=== PATIENT | female | born 1995 | race Caucasian/White ===

== ENCOUNTER 2020-04-05 03:22 | Inpatient (IN) | payer OTHER, BC ==
[2020-04-05] MEDS ORDERED: Sodium Chloride 0.9% 10 ML Syringe FLUSH PRN (04:14)
[2020-04-05] MEDS ORDERED: Ondansetron 4 MG/2 ML SDV IVPUSH PRN (04:14)
[2020-04-05] MEDS ORDERED: Oxytocin/Lactated Ringers 10 UNIT/1,000 ML BAG IV SCH ×2 (04:15→13:30)
[2020-04-05] MEDS: Nalbuphine 10 MG/ML Syringe IVPUSH PRN ×2 (07:28→09:34)
--- NOTE | 2020-04-05 08:55 | PCM.LDHP ---
L&D History of Present Illness - General Date of Service: 04/05/20 Admit Problem/Dx: Patient Status Order with Admit Dx/Problem 04/05/20 03:32 Patient Status [ADT] Routine 04/05/20 04:14 Patient Status [ADT] Routine Admission Diagnosis/Problem Admission Diagnosis/Problem 04/05/20 08:46 Bre is a 24-year-old 1 para 0 white female admitted at 39-6/7 weeks gestational age with a final CARA of 04/06/2020 with a diagnosis of spontaneous rupture membranes at approximately 0130 hrs. on 04/05/2020 now presenting with active labor. Source of Information: Patient History Limitations: Reports: No Limitations - History of Present Illness Introduction:: Bre is a 24-year-old 1 para 0 white female admitted at 39-6/7 weeks gestational age with a final CARA of 04/06/2020 with a diagnosis of spontaneous rupture membranes at approximately 0130 hrs. on 04/05/2020 now presenting with active labor.She is having intense enough contractions or she is having to breathe through them. She has had had 1 dose of Nubain with some relief. In some cervical change since her last evaluation in clinic. She is group B strep negative. She's had some anxiety during the course of . She is BRCA positive. She has had a history of depression. Vaccinations given on 07/29/2019. She plans to breast-feed. Prequel resting was negative for trisomy 21, 18 and 13. Patient had menarche at age proximal A 12. Cycles every 28 days. Laststarted 06/25/2019 but ultrasound done at 10-1/7 weeks is how was dated. She is given an CARA o 04/06/20 and this CARA is supported by 2 other ultrasounds done on 11/26/2019 and 12/22/2019. Initial ultrasound showed a small hypoechoic area in the area of the stomach but this resolved on the second ultrasound. Etiology of this was not known. Patient received her T dap immunization on 02/10/2020. RPR was negative. She is rubella immune. Hepatitis 80 vaccinations are given in 2007. Hepatitis B vaccinations are given in 1994. Meningococcal vaccination was given in 2017. Course: Patient was seen early in the at 10 weeks gestation. She was seen on a regular basis. Weight 152 pounds 172.8 pounds for a 20 pound increase. Her vital signs remained stable throughout the course and her fundal height growth was appropriate. Laboratory testing and shows her blood to be O+ with negative amylase screen. Hemoglobin is 14.2 g/dL and platelets are 246,000. She is rubella immune. RPR is nonreactive. Urine cultures negative. Hepatitis B surface antigen and HIV assays were both negative. Gonorrhea and chlamydia tests were both negative. Second trimester testing showed hemoglobin to be 12.5 g/dL. Platelets were 244,001 hour GTT was normal at 100. Her RPR done on 01/05/2020 was negative. Group B strep screen was negative. Allergies: None Medications: 1. Probiotic oral capsule daily 2. Vitamin D tabs daily 3. vitamins daily Past medical history: 1. BRCA2 positive Past surgical history: 1. Oral surgery Family history: Mother is alive and wellis BRCA positive, no cancer history noted. Father is alive and well. One brother is alive and well. One sister is alive and well but also BRCA positive. Maternal grandmother is alive and well at age 75is BRCA positive but has no cancer history. Maternal grandfather is alive and well. Paternal grandmother is secondary to leukemia at age 45. Paternal grandfather is alive at age 86 but with some heart disease. She has no known family history of bleeding or blood clotting disorders, anesthesia -related issues or -related issues. There is some distant colon cancer noted on her mother's side. Social history: Patient is . She lives in [place], [place]. 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 's name is Efren. She is not using any significant most alcohol, drugs or tobacco. Review of systems: In general patient has no complaints. She is comfort. Baby has been active. Skin: Negative Lungs: No infectious symptoms or shortness of breath Cardiovascular: No chest pain or exercise intolerance Breasts: No lumps, changes in size, pain, dimpling, discharge or axillary or supraclavicular concerns. changes GI: Negative : changes Musculoskeletal: Negative Neurological: Negative In general the patient is well-developed, well-nourished, pleasant female of stated age in no acute distress. On last evaluation in clinic her blood pressure was 128/76. Weight was 172.8 pounds with pregravid weight of 152 pounds. Height is 5 feet 5 inches. Prepregnancy body mass index is 25.8. heart rate at that time was 130 Skin is warm dry without lesions. HEENT, neck and back within normal limits. Lungs are clear with good breath sounds in all lung lilly. Cardiovascular exam shows regular and rhythm without murmurs. Breast exam is deferred at this time having been done at first visit found to be normal. Abdomen is gravid with fundal height consistent with 38.5 cm on last evaluation clinic. Baby in vertex presentation.. Genital examdigital as stated above.. Extremities and neurological exam are grossly within normal limits. 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: , Other (See Below) Other OB/BYN History: BRCA positive Psychiatric History: Reports: Anxiety, Depression - Past Surgical History HEENT Surgical History: Reports: Myringotomy w Tube(s), Oral Surgery Social & Family History - Tobacco Use Smoking Status *Q: Never Smoker - Recreational Drug Use Recreational Drug Use: No H&P Review of Systems - Review of Systems: Review Of Systems: See Below L&D Exam - Exam Exam: See Below - Vital Signs Vital Signs: Last Vital Signs Temp 36.9 C 04/05/20 03:32 Pulse 83 04/05/20 03:32 Resp 18 04/05/20 03:32 BP 137/79 04/05/20 03:32 Pulse Ox 99 04/05/20 03:32 Weight: 78.018 kg - Patient Data Lab Results Last 24 hrs: Laboratory Results - last 24 hr 04/05/20 04/05/20 Range/Units 04:50 04:50 WBC 12.08 H (3.98-10.04) K/mm3 RBC 4.59 (3.98-5.22) M/mm3 Hgb 14.4 (11.2-15.7) gm/dl Hct 41.3 (34.1-44.9) % MCV 90.0 (79.4-94.8) fl MCH 31.4 (25.6-32.2) pg MCHC 34.9 (32.2-35.5) g/dl RDW Std Deviation 42.1 (36.4-46.3) fL Plt Count 212 (182-369) K/mm3 MPV 10.2 (9.4-12.3) fl Neut % (Auto) 76.5 H (34.0-71.1) % Lymph % (Auto) 17.0 L (19.3-51.7) % [place] % (Auto) 5.4 (4.7-12.5) % Eos % (Auto) 0.2 L (0.7-5.8) Baso % (Auto) 0.2 (0.1-1.2) % Neut # (Auto) 9.24 H (1.56-6.13) K/mm3 Lymph # (Auto) 2.05 (1.18-3.74) K/mm3 [place] # (Auto) 0.65 H (0.24-0.36) K/mm3 Eos # (Auto) 0.03 L (0.04-0.36) K/mm3 Baso # (Auto) 0.02 (0.01-0.08) K/mm3 Blood Type O POSITIVE Gel Antibody Screen Negative Result Diagrams: 04/05/20 04:50 Problem List Initiated/Reviewed/Updated: Yes Orders Last 24hrs: Active Orders 24 hr Category Date Time Status Patient Status [ADT] Routine ADT 04/05/20 04:14 Active Activity as Tolerated [RC] PFP Care 04/05/20 04:14 Active Communication Order [RC] ASDIRECTED Care 04/05/20 04:14 Active Heart Tones [RC] ASDIRECTED Care 04/05/20 04:15 Active Non Stress Test [RC] PER UNIT ROUTINE Care 04/05/20 03:32 Active Notify Provider [RC] PFP Care 04/05/20 04:14 Active Notify Provider [RC] PRN Care 04/05/20 04:14 Active Peripheral IV Care [RC] . DIRECTED Care 04/05/20 04:15 Active Vital Signs [RC] PER UNIT ROUTINE Care 04/05/20 03:32 Active Regular Diet [DIET] Diet 04/05/20 Breakfast Active RAPID PLASMA REAGIN,RPR [CHEM] Routine Lab 04/05/20 04:50 Received Lactated Ringers [Ringers, Lactated] 1,000 ml Med 04/05/20 04:15 Active IV ASDIRECTED Nalbuphine [Nubain] Med 04/05/20 04:14 Active 10 mg IVPUSH Q2H PRN Ondansetron [Zofran] Med 04/05/20 04:14 Active 4 mg IVPUSH Q4H PRN Oxytocin/Lactated Ringers [Pitocin in LR 10 Units/1,000 Med 04/05/20 04:15 Active ML] 10 unit in 1,000 ml IV .CONTINUOUS Sodium Chloride 0.9% [Saline Flush] Med 04/05/20 04:14 Active 10 ml FLUSH ASDIRECTED PRN Electronic Heart Tones Ext w TOCO [WOMSER] Oth 04/05/20 04:14 Ordered Routine Electronic Heart Tones Internal [WOMSER] Per Unit Oth 04/05/20 04:14 Ordered Routine Peripheral IV Insertion Adult [OM.PC] Routine Oth 04/05/20 04:14 Ordered Resuscitation Status Routine Resus Stat 04/05/20 03:32 Ordered Medication Orders Lactated Ringer's (Ringers, Lactated) 1,000 mls @ 100 mls/hr IV ASDIRECTED AMARI Oxytocin/Lactated Ringer's (Pitocin In Lr 10 Units/1,000 Ml) 10 unit in 1,000 mls @ 500 mls/hr IV .CONTINUOUS AMARI Nalbuphine HCl (Nubain) 10 mg IVPUSH Q2H PRN PRN Reason: Pain Last Admin: 04/05/20 07:28 Dose: 10 mg Ondansetron HCl (Zofran) 4 mg IVPUSH Q4H PRN PRN Reason: Nausea/Vomiting Sodium Chloride (Saline Flush) 10 ml FLUSH ASDIRECTED PRN PRN Reason: Keep Vein Open Assessment/Plan Comment:: 1. 39-6/7 week intrauterine with an CARA of 04/06/2020 with spontaneous rupture membranes and active labor with cervical change. 2. Group B strep screen negative 3. Prequel test was negative 4. Patient received her T dap her flu vaccination. She is rubella immune. 5. Patient is open to epidural but wouldlike to try naturally. 6. Patient is BRCA2 positive Plan: 1. Anticipate normal spontaneous vaginal delivery. 2. Labor analgesia was discussed with patient. She appears to understand and will use this as she feels is indicated 3. Support breast-feeding decision 4. RPR and CBC per protocol 5. Routine labor care
[2020-04-05] MEDS: Lactated Ringers 1,000 ML IV SCH ×3 (10:17→11:34)
[2020-04-05] MEDS ORDERED: ePHEDrine 50 MG/ML SDV IVPUSH PRN (11:01)
[2020-04-05] MEDS ORDERED: diphenhydrAMINE 50 MG/ML SDV IVPUSH PRN (11:01)
[2020-04-05] MEDS ORDERED: Bupivacaine/fentaNYL/NS 100 ML Bag EPIDUR PRN (11:01)
[2020-04-05] MEDS ORDERED: fentaNYL 100 MCG/2 ML SDV EPIDUR PRN (11:01)
--- NOTE | 2020-04-05 11:34 | PCM.PREANE ---
Preanesthetic Assessment - Procedure Proposed Procedure: Epidural - Anesthesia/Transfusion/Family Hx Anesthesia History: No Prior Anesthesia Family History of Anesthesia Reaction: No Transfusion History: No Prior Transfusion(s) - Review of Systems General: Fatigue, Malaise Pulmonary: No Symptoms Cardiovascular: No Symptoms Gastrointestinal: Abdominal Pain (labor) Neurological: No Symptoms Other: Reports: None - Physical Assessment Vital Signs: Last Vital Signs Temp 36.9 C 04/05/20 03:32 Pulse 83 04/05/20 03:32 Resp 18 04/05/20 03:32 BP 137/79 04/05/20 03:32 Pulse Ox 99 04/05/20 03:32 Height: 1.65 m Weight: 78.018 kg ASA Class: 2 Mental Status: Alert & Oriented x3 Airway Class: Mallampati = 1 Dentition: Reports: Normal Dentition Thyro-Mental Finger Breadths: 3 Mouth Opening Finger Breadths: 3 ROM/Head Extension: Full Lungs: Clear to Auscultation, Normal Respiratory Effort Cardiovascular: Regular Rate, Regular Rhythm - Lab Values: Laboratory Last Values WBC 12.08 K/mm3 (3.98-10.04) H 04/05/20 04:50 RBC 4.59 M/mm3 (3.98-5.22) 04/05/20 04:50 Hgb 14.4 gm/dl (11.2-15.7) 04/05/20 04:50 Hct 41.3 % (34.1-44.9) 04/05/20 04:50 MCV 90.0 fl (79.4-94.8) 04/05/20 04:50 MCH 31.4 pg (25.6-32.2) 04/05/20 04:50 MCHC 34.9 g/dl (32.2-35.5) 04/05/20 04:50 RDW Std Deviation 42.1 fL (36.4-46.3) 04/05/20 04:50 Plt Count 212 K/mm3 (182-369) 04/05/20 04:50 MPV 10.2 fl (9.4-12.3) 04/05/20 04:50 Neut % (Auto) 76.5 % (34.0-71.1) H 04/05/20 04:50 Lymph % (Auto) 17.0 % (19.3-51.7) L 04/05/20 04:50 [place] % (Auto) 5.4 % (4.7-12.5) 04/05/20 04:50 Eos % (Auto) 0.2 (0.7-5.8) L 04/05/20 04:50 Baso % (Auto) 0.2 % (0.1-1.2) 04/05/20 04:50 Neut # (Auto) 9.24 K/mm3 (1.56-6.13) H 04/05/20 04:50 Lymph # (Auto) 2.05 K/mm3 (1.18-3.74) 04/05/20 04:50 [place] # (Auto) 0.65 K/mm3 (0.24-0.36) H 04/05/20 04:50 Eos # (Auto) 0.03 K/mm3 (0.04-0.36) L 04/05/20 04:50 Baso # (Auto) 0.02 K/mm3 (0.01-0.08) 04/05/20 04:50 Blood Type O POSITIVE 04/05/20 04:50 Gel Antibody Screen Negative 04/05/20 04:50 - Allergies Allergies/Adverse Reactions: Allergies Allergy/AdvReac Type Severity Reaction Status Date / Time No Known Allergies Allergy Verified 04/05/20 03:32 - Anesthesia Plan Pre-Op Medication Ordered: None - Acknowledgements Anesthesia Type Planned: Epidural Pt an Appropriate Candidate for the Planned Anesthesia: Yes Alternatives and Risks of Anesthesia Discussed w Pt/Guardian: Yes Pt/Guardian Understands and Agrees with Anesthesia Plan: Yes PreAnesthesia Questionnaire Gastrointestinal History: Reports: GERD 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: , Other (See Below) Other OB/BYN History: BRCA positive Psychiatric History: Reports: Anxiety, Depression - Past Surgical History HEENT Surgical History: Reports: Myringotomy w Tube(s), Oral Surgery - SUBSTANCE USE Smoking Status *Q: Never Smoker Recreational Drug Use History: No - HOME MEDS Home Medications: Home Meds Cholecalciferol (Vitamin D3) [Vitamin D] 04/05/20 [History] L.acidoph,Paracasei, B.lactis [Probiotic] 1 each PO 04/05/20 [History] Vits #93/Iron Fum/FA [ Formula Tablet] 1 each PO 04/05/20 [ History] - CURRENT (IN HOUSE) MEDS Current Meds: Current Medications Diphenhydramine HCl (Benadryl) 25 mg IVPUSH Q6H PRN PRN Reason: pruritis Ephedrine Sulfate (Ephedrine Sulfate) 5 mg IVPUSH ASDIRECTED PRN PRN Reason: Hypotension Fentanyl (Sublimaze) 100 mcg EPIDUR Q3H PRN PRN Reason: Pain Fentanyl/Bupivacaine HCl (Fentanyl/Bupivacaine/Ns 2 Mcg-0.125% 100 Ml) 100 ml EPIDUR ASDIRECTED PRN PRN Reason: Pain Lactated Ringer's (Ringers, Lactated) 1,000 mls @ 100 mls/hr IV ASDIRECTED AMARI Last Admin: 04/05/20 10:47 Dose: 100 mls/hr Oxytocin/Lactated Ringer's (Pitocin In Lr 10 Units/1,000 Ml) 10 unit in 1,000 mls @ 500 mls/hr IV .CONTINUOUS AMARI Nalbuphine HCl (Nubain) 10 mg IVPUSH Q2H PRN PRN Reason: Pain Last Admin: 04/05/20 09:34 Dose: 10 mg Ondansetron HCl (Zofran) 4 mg IVPUSH Q4H PRN PRN Reason: Nausea/Vomiting Sodium Chloride (Saline Flush) 10 ml FLUSH ASDIRECTED PRN PRN Reason: Keep Vein Open
--- NOTE | 2020-04-05 18:20 | PCM.SN.2 ---
- Free Text/Narrative Note: Delivery Note: Bre is a 24-year-old 1 para 0 white female admitted at 39-6/7 weeks gestational age with a final CRAA of 04/06/2020 with a diagnosis of spontaneous rupture membranes at approximately 0130 hrs. on 04/05/2020 now presenting with active labor. The patient was started on Pitocin augmentation. She underwent labor epidural for pain control. She progressed steadily to complete cervical dilation. At 1748 hrs. patient delivered a viable, calderon, female weighing 3020 g (6 pounds 10.5 ounces), with a length of 20.0 inches and score of 8/9. Baby delivered in a direct occiput anterior position. Baby was placed on mom's abdomen, nose and mouth were bulb suctioned and the baby was dried with a warm blanket. Pitocin was increased to 500 mL per hour to facilitate increasing uterine tone and decreased likelihood of bleeding. The umbilical cord was allowed to pulsate for approximately 2-3 minutes and was clamped 2 and cut by the baby's father Mich. Cord blood was obtained. The umbilical cord had 3 vessels. Perineal laceration, second-degree in nature, was repaired in routine fashion using 3-0 Monocryl suture. Epidural analgesia was used for perineal anesthesia for the repair. Patient tolerated this well. The placenta delivered in a Roach presentation within the course of approximately 5-10 minutes and appeared intact complete and was discarded per patient desire. The patient plans to breast-feed. Estimated blood loss was 300 mL. Condition: Good
[2020-04-05] MEDS ORDERED: Benzocaine/Menthol 20%-0.5% Spray 56 GM Canister TOP PRN (18:33)
[2020-04-05] MEDS ORDERED: Acetaminophen 325 MG Tab PO PRN (18:33)
[2020-04-05] MEDS ORDERED: Witch Hazel Medicated Pads 40/Jar TOP PRN (18:33)
[2020-04-05] MEDS ORDERED: Hydrocortisone 1% Crm 30 GM Tube TOP PRN (18:34)
[2020-04-05] MEDS: Ibuprofen 600 MG Tab PO PRN (19:05)
[2020-04-06] MEDS ORDERED: Bupivacaine 0.25% 10 ML SDV ONE
[2020-04-06] MEDS ORDERED: ePHEDrine 50 MG/ML SDV ONE
[2020-04-06] MEDS: Ibuprofen 600 MG Tab PO PRN ×4 (00:59→19:19)
--- NOTE | 2020-04-06 06:15 | PCM.SN.2 ---
- Free Text/Narrative Note: note: Patient is doing well in the period. Minimal lochia, voiding well, ambulated without problems. Nursing without concerns. Patient has some hemorrhoidal discomfort but generally is doing well. She is been started on hydrocortisone rectal cream. Patient is afebrile, vital signs are stable Abdomen is flat, soft, uterus is below the umbilicus and is firm and nontender. Legs are nontender. Assessment: recovery going well. Plan: Routine care. Patient be discharged home within the next 24-48 hours.
--- NOTE | 2020-04-06 08:01 | PCM48HPAN ---
Post Anesthesia Note - EVALUATION WITHIN 48HRS OF ANESTHETIC Vital Signs in Normal Range: Yes Patient Participated in Evaluation: Yes Respiratory Function Stable: Yes Airway Patent: Yes Cardiovascular Function Stable: Yes Hydration Status Stable: Yes Pain Control Satisfactory: Yes Nausea and Vomiting Control Satisfactory: Yes Mental Status Recovered: Yes Vital Signs: Last Vital Signs Temp 36.9 C 04/06/20 04:03 Pulse 64 04/06/20 04:03 Resp 16 04/06/20 04:03 BP 115/72 04/06/20 04:03 Pulse Ox 98 04/06/20 04:03 - COMMENTS/OBSERVATIONS Free Text/Narrative:: no anesthesia complications noted
[2020-04-06] MEDS: Docusate Sodium 100 MG Cap PO PRN (08:34)
[2020-04-06] MEDS: Prenatal Multivitamin with Calcium/Folic Acid/Iron Tab PO SCH (08:34)
[2020-04-07] MEDS: Docusate Sodium 100 MG Cap PO PRN (01:37)
[2020-04-07] MEDS: Ibuprofen 600 MG Tab PO PRN ×2 (01:37→08:44)
--- NOTE | 2020-04-07 07:56 | PCM.DCSUM1 ---
Discharge Summary - Hospital Course Free Text/Narrative:: Bre is a 24-year-old 1 para 0 white female admitted at 39-6/7 weeks gestational age with a final CARA of 04/06/2020 with a diagnosis of spontaneous rupture membranes at approximately 0130 hrs. on 04/05/2020 now presenting with active labor. The patient was started on Pitocin augmentation. She underwent labor epidural for pain control. She progressed steadily to complete cervical dilation. At 1748 hrs. patient delivered a viable, calderon, female weighing 3020 g (6 pounds 10.5 ounces), with a length of 20.0 inches and score of 8/9. Baby delivered in a direct occiput anterior position. Baby was placed on mom's abdomen, nose and mouth were bulb suctioned and the baby was dried with a warm blanket. Pitocin was increased to 500 mL per hour to facilitate increasing uterine tone and decreased likelihood of bleeding. The umbilical cord was allowed to pulsate for approximately 2-3 minutes and was clamped 2 and cut by the baby's father Mich. Cord blood was obtained. The umbilical cord had 3 vessels. Perineal laceration, second-degree in nature, was repaired in routine fashion using 3-0 Monocryl suture. Epidural analgesia was used for perineal anesthesia for the repair. Patient tolerated this well. The placenta delivered in a Roach presentation within the course of approximately 5-10 minutes and appeared intact complete and was discarded per patient desire. Estimated blood loss was 300 mL. patient has had some hemorrhoidal problems for which she was started on hydrocortisone cream. Conservative and more aggressive treatments been discussed with patient. She is doing well as far as her vaginal discharge, nursing, ambulation and voiding are concerned. She is received instruction and guidance from consultation services. Patient is desiring discharge home. Condition: Good - Discharge Data Discharge Date: 04/07/20 Discharge Disposition: Home, Self-Care 01 Condition: Good - Referral to Home Health Primary Care Physician: Jack Jenkins MD - Patient Instructions Diet: Regular Diet as Tolerated (Nursing diet with increased calcium and calories as recommended) Activity: As Tolerated (No intercourse or tampons until bleeding resolves) Driving: May Drive Today Showering/Bathing: May Shower (May take a bath) Notify Provider of: Fever, Increased Pain, Swelling and Redness, Nausea and/or Vomiting - Discharge Plan Home Medications: Home Meds Cholecalciferol (Vitamin D3) [Vitamin D] 04/05/20 [History] L.acidoph,Paracasei, B.lactis [Probiotic] 1 each PO 04/05/20 [History] Vits #93/Iron Fum/FA [ Formula Tablet] 1 each PO 04/05/20 [History] Acetaminophen [Tylenol] 650 mg PO Q4H PRN tablet 04/07/20 [Rx] Ibuprofen [Motrin] 600 mg PO Q4H PRN tablet 04/07/20 [Rx] christiano Mathew [Tucks] 1 pad TOP ASDIRECTED PRN pad 04/07/20 [Rx] Referrals: Jack Jenkins MD [Primary Care Provider] - (Return to clinicDr. Jenkins or Gita peng practitioner2 weeks.) - Discharge Summary/Plan Comment DC Time >30 min.: No Discharge Summary/Plan Comment: Discharge instructions: 1. Discharge home 2. Diet, activity and follow-up discussed with patient. Recommend nursing diet with increased calories and calcium. 3. Precautions given concern increased pain, bleeding, temperature, signs/symptoms of DVT/PE. 4. Medications per home medication was printed, discussed with and given to the patient. 5. Return to clinic-Dr. Jenkins or Gita peng practitioner-[facility] in 2 weeks. Diagnosis: Term -delivered Condition: Good - Patient Data Vitals - Most Recent: Last Vital Signs Temp 36.6 C 04/07/20 01:49 Pulse 67 04/07/20 01:49 Resp 14 04/07/20 01:49 BP 120/66 04/07/20 01:49 Pulse Ox 98 04/07/20 01:49 Weight - Most Recent: 78.018 kg I&O - Last 24 hours: Intake & Output 04/06/20 04/07/20 04/07/20 22:59 06:59 14:59 Intake Total 0 Balance 0 Med Orders - Current: Current Medications Acetaminophen (Tylenol) 650 mg PO Q4H PRN PRN Reason: mild pain or fever Benzocaine/Menthol (Dermoplast Pain Relief [place]) 0 gm TOP ASDIRECTED PRN PRN Reason: Perineal Comfort Measure Last Admin: 04/05/20 20:26 Dose: 1 can Documented by: Docusate Sodium (Colace) 100 mg PO BID PRN PRN Reason: Constipation Last Admin: 04/07/20 01:37 Dose: 100 mg Documented by: Hydrocortisone (Hydrocortisone 1% Crm) 30 gm TOP ASDIRECTED PRN PRN Reason: Hemorrhoids Last Admin: 04/06/20 08:34 Dose: 1 applic Documented by: Ibuprofen (Motrin) 600 mg PO Q4H PRN PRN Reason: Mild pain or fever Last Admin: 04/07/20 01:37 Dose: 600 mg Documented by: Prenat Multivit/Trestle Mechanic/Iron/Folic Ac ( Plus Iron) 1 each PO DAILY AMARI Last Admin: 04/06/20 08:34 Dose: 1 each Documented by: Christiano Mathew ([facility]) 1 pad TOP ASDIRECTED PRN PRN Reason: Perineal Comfort Measure Last Admin: 04/05/20 20:26 Dose: 1 jar Documented by: Discontinued Medications Bupivacaine HCl (Sensorcaine-Mpf 0.25%) 10 ml .ROUTE .STK-MED ONE Stop: 04/06/20 00:01 Diphenhydramine HCl (Benadryl) 25 mg IVPUSH Q6H PRN PRN Reason: pruritis Ephedrine Sulfate (Ephedrine Sulfate) 5 mg IVPUSH ASDIRECTED PRN PRN Reason: Hypotension Ephedrine Sulfate (Ephedrine Sulfate) 50 mg .ROUTE .STK-MED ONE Stop: 04/06/20 00:01 Fentanyl (Sublimaze) 100 mcg EPIDUR Q3H PRN PRN Reason: Pain Last Admin: 04/05/20 11:35 Dose: 100 mcg Documented by: Fentanyl/Bupivacaine HCl (Fentanyl/Bupivacaine/Ns 2 Mcg-0.125% 100 Ml) 100 ml EPIDUR ASDIRECTED PRN PRN Reason: Pain Last Admin: 04/05/20 11:35 Dose: 100 ml Documented by: Lactated Ringer's (Ringers, Lactated) 1,000 mls @ 100 mls/hr IV ASDIRECTED AMARI Last Admin: 04/05/20 11:34 Dose: 100 mls/hr Documented by: Oxytocin/Lactated Ringer's (Pitocin In Lr 10 Units/1,000 Ml) 10 unit in 1,000 mls @ 500 mls/hr IV .CONTINUOUS AMARI Oxytocin/Lactated Ringer's (Pitocin In Lr 10 Units/1,000 Ml) 10 unit in 1,000 mls @ 12 mls/hr IV TITRATE AMARI; Protocol Last Titration: 04/05/20 15:30 Dose: 10 munits/min, 60 mls/hr Documented by: Nalbuphine HCl (Nubain) 10 mg IVPUSH Q2H PRN PRN Reason: Pain Last Admin: 04/05/20 09:34 Dose: 10 mg Documented by: Ondansetron HCl (Zofran) 4 mg IVPUSH Q4H PRN PRN Reason: Nausea/Vomiting Last Admin: 04/05/20 13:26 Dose: 4 mg Documented by: Sodium Chloride (Saline Flush) 10 ml FLUSH ASDIRECTED PRN PRN Reason: Keep Vein Open
[2020-04-07] MEDS: Prenatal Multivitamin with Calcium/Folic Acid/Iron Tab PO SCH (08:44)
== END 2020-04-07 14:10 | disposition home or self-care (01) | DRG 807 ==
LOC: JD.OBCHECK 03:22 → JD.OB 04:14 → OBSVTOIN 17:48 → JD.OB 17:48
PROVIDERS: ADMIT Obstetrics & Gynecology; ATTEND Obstetrics & Gynecology
PROC: 10E0XZZ Delivery of Products of Conception, External Approach (ICD-10-PCS; principal; 2020-04-05)
PROC: 0KQM0ZZ Repair Perineum Muscle, Open Approach (ICD-10-PCS; 2020-04-05)
PROC: 3E0R3BZ Introduction of Anesthetic Agent into Spinal Canal, Percutaneous Approach (ICD-10-PCS; 2020-04-05)
PROC: 00HU33Z Insertion of Infusion Device into Spinal Canal, Percutaneous Approach (ICD-10-PCS; 2020-04-05)
DX: O70.1 Second degree perineal laceration during delivery (principal); Z37.0 Single live birth; Z3A.39 39 weeks gestation of pregnancy
CPT/HCPCS: 01967; 36415; 51702; 59025; 59409; 85025; 86592; 86850; 86900; 86901; A9270-GY; J2300; J2405; J2590; J3010; J3490; J7120

== ENCOUNTER 2022-07-29 07:08 | Inpatient (IN) | payer BC ==
[2022-07-29] MEDS ORDERED: Bupivacaine 0.25% 10 ML SDV EPIDUR ONE (08:09)
[2022-07-29] MEDS ORDERED: ePHEDrine 50 MG/ML SDV IV ONE ×2 (08:09→11:30)
[2022-07-29] MEDS ORDERED: Lactated Ringers 1,000 ML IV ONE (10:30)
[2022-07-29] MEDS ORDERED: fentaNYL 100 MCG/2 ML SDV EPIDUR ONE (11:25)
[2022-07-29] MEDS ORDERED: Bupivacaine/fentaNYL/NS 100 ML Bag EPIDUR ONE (11:45)
[2022-07-29] MEDS ORDERED: Methylergonovine 0.2 MG/1 ML Amp IM ONE (16:05)
[2022-07-29] MEDS ORDERED: Misoprostol 200 MCG Tab PO ONE (16:25)
[2022-07-29] MEDS ORDERED: Ondansetron 4 MG/2 ML SDV IV ONE (16:50)
[2022-07-30] MEDS ORDERED: Ibuprofen 600 MG Tab PO ONE ×2 (04:00→07:45)
[2022-07-30] MEDS ORDERED: LORazepam 0.5 MG Tab PO ONE (23:50)
== END 2022-07-31 10:41 | disposition home or self-care (01) | DRG 560 ==
LOC: JD.ZCENSUS 07:08
PROVIDERS: ADMIT Obstetrics & Gynecology; ATTEND Obstetrics & Gynecology
PROC: 3E0R3BZ Introduction of Anesthetic Agent into Spinal Canal, Percutaneous Approach (ICD-10-PCS; principal; 2022-07-29)
PROC: 00HU33Z Insertion of Infusion Device into Spinal Canal, Percutaneous Approach (ICD-10-PCS; 2022-07-29)
PROC: 10E0XZZ Delivery of Products of Conception, External Approach (ICD-10-PCS; 2022-07-29)
PROC: 0HQ9XZZ Repair Perineum Skin, External Approach (ICD-10-PCS; 2022-07-29)
DX: O99.344 Other mental disorders complicating childbirth (principal); F41.0 Panic disorder [episodic paroxysmal anxiety]; F32.A Depression, unspecified; Z37.0 Single live birth; Z3A.40 40 weeks gestation of pregnancy; O70.0 First degree perineal laceration during delivery
CPT/HCPCS: 01967; 36415; 51702; 59025; 59409; 85025; 86592; A9270-GY; J2210; J2405; J3010; J3490; J7120